=== PATIENT | male | born 1950 | race Caucasian/White ===

== ENCOUNTER → 2017-10-01 | Outpatient (CLI) | payer MEDICARE ==
[~2017-10-01] MED LIST: AMLO5TAB2 PO; HYDR-3237 PO; RIVA10TA PO
[2017-10-01 09:04] LABS: MICROSCOPIC INDICATED
== END | disposition home or self-care (01) ==
LOC: STAR 07:57
PROVIDERS: ATTEND Urology
DX: Z01.818 Encounter for other preprocedural examination (principal); I51.7 Cardiomegaly; N20.0 Calculus of kidney; I10 Essential (primary) hypertension
CPT/HCPCS: 81001; 87086; 93005

== ENCOUNTER 2017-10-06 05:35 | Day surgery (SDC) | payer MEDICARE ==
[~2017-10-06] VITALS: Ht 188 cm; Wt 86.4 kg
[2017-10-06] MEDS ORDERED: LACTATED RINGERS 1,000 ML IV SCH (06:10)
[2017-10-06 06:13] VITALS: BP 119/76
[2017-10-06] MEDS ORDERED: FENTANYL PF 100 MCG/2ML ONE (07:27)
[2017-10-06] MEDS ORDERED: MIDAZOLAM 1 MG/ML, 2ML ONE (07:27)
[2017-10-06] MEDS ORDERED: ONDANSETRON 2MG/ML, 2ML ONE ×2 (07:35→08:48)
[2017-10-06] MEDS ORDERED: KETOROLAC 30 MG/1 ML ONE (07:35)
[2017-10-06] MEDS ORDERED: DEXAMETHASONE 4 MG/ML, 1ML ONE ×2 (07:35→08:48)
[2017-10-06] MEDS ORDERED: PROPOFOL 10 MG/ML, 20ML ONE ×2 (07:35→08:48)
[2017-10-06] MEDS ORDERED: CIPROFLOXACIN/PMX 400MG/200ML 200 ML ONE (07:45)
[2017-10-06] MEDS ORDERED: FENTANYL PF 100 MCG/2ML IV PRN (08:30)
[2017-10-06] MEDS ORDERED: SCOPOLAMINE PATCH, 1.5MG PATCH.TD72 TD PRN (08:30)
[2017-10-06] MEDS ORDERED: ACETAMINOPHEN 325 MG TABLET PO PRN (08:30)
[2017-10-06] MEDS ORDERED: MIDAZOLAM 1 MG/ML, 2ML IV PRN (08:30)
[2017-10-06] MEDS ORDERED: OXYcodone 5 MG/5 ML ORAL.SOL UDC PO PRN (08:30)
[2017-10-06] MEDS ORDERED: MEPERIDINE/PF 25MG/0.5ML IVPush PRN (08:30)
[2017-10-06] MEDS ORDERED: PROMETHAZINE 25 MG/ML, 1ML IV PRN (08:30)
[2017-10-06] MEDS ORDERED: ONDANSETRON 2MG/ML, 2ML IV PRN ×2 (08:30→09:00)
[2017-10-06] MEDS ORDERED: ALBUTEROL/IPRATROPIUM 2.5MG/0.5MG, 3 ML NPPB PRN (08:30)
[2017-10-06] MEDS ORDERED: CEFAZOLIN 1,000 MG ONE (08:48)
[2017-10-06] MEDS ORDERED: OXYcodone/APAP 5/325MG TABLET PO PRN (09:00)
== END 2017-10-06 10:45 ==
LOC: OUT 05:35
PROVIDERS: ATTEND Urology
DX: N20.0 Calculus of kidney (principal); I49.3 Ventricular premature depolarization; I10 Essential (primary) hypertension; Z72.0 Tobacco use; Z72.89 Other problems related to lifestyle; Z87.891 Personal history of nicotine dependence; Z98.890 Other specified postprocedural states; Z01.810 Encounter for preprocedural cardiovascular examination; Z86.718 Personal history of other venous thrombosis and embolism
CPT/HCPCS: 50590; J0744; J1100; J1885; J2250; J2405; J2704; J3010; J7120; J0690

== ENCOUNTER → 2017-12-16 | Outpatient (CLI) | payer MEDICARE ==
[~2017-12-16] MED LIST changes: -AMLO5TAB2 PO; +AMLO5TAB7 PO
== END | disposition home or self-care (01) ==
LOC: CFH 08:31
PROVIDERS: ATTEND Internal Medicine Cardiovascular Disease
DX: I49.3 Ventricular premature depolarization (principal); R94.31 Abnormal electrocardiogram [ECG] [EKG]; Z86.718 Personal history of other venous thrombosis and embolism
CPT/HCPCS: 78452; 93017; A9502

== ENCOUNTER → 2019-08-02 | Outpatient (CLI) | payer MEDICARE ==
[~2019-08-02] MED LIST changes: +ACET325T14 PO; +AMLO-150 PO; -AMLO5TAB7 PO; +ASPI81TA50 PO; +ATOR-2 PO; +LISI5TAB7 PO; +METO25TA2 PO; +NITR0.4T28 SL; +PRAS10TA4 PO; -RIVA10TA PO; +RIVA10TA2 PO
== END | disposition home or self-care (01) ==
LOC: CFH 15:10
PROVIDERS: ATTEND Internal Medicine Cardiovascular Disease
DX: I82.409 Acute embolism and thrombosis of unspecified deep veins of unspecified lower extremity (principal); M79.669 Pain in unspecified lower leg
CPT/HCPCS: 93970